=== PATIENT | female | born 1980 | race Caucasian/White ===

== ENCOUNTER 2016-11-17 19:42 | Emergency (ER) | payer OTHER ==
[2016-11-17 19:54] VITALS: BP 115/78; PULSE 61; TEMP 97.6
[2016-11-17 20:20] VITALS: BMI 34.7
--- NOTE | 2016-11-17 20:51 | PDOC ---
History of Present Illness - General Chief Complaint: Chest Pain Stated Complaint: CHEST PAIN/SOB Time Seen by Provider: 11/17/16 20:43 History Source: Patient Exam Limitations: No Limitations, Language Barrier - History of Present Illness Presenting Symptoms: Chest Pain Timing/Duration: reports: getting worse Severity/Quality: reports: moderate, pressure Location: reports: substernal Chest Pain Radiation: reports: no radiation Activities at Onset: reports: none. denies: exertion, emotional upset, rest, sleep, no specific activity, eating, working, sexual intercourse, other Prior Chest Pain/Cardiac Workup: reports: Angina Modifying Factors: worse with: antacids, breathing, coughing, defecating, eating , exercise, lying down, morphine, movement, nitroglycerin, oxygen, palpation, rest, other Nitro Today/Relief: No: no nitro taken today, 0.4 mg x 1, 0.4 mg x 2, 0.4 mg x 3 , 0.4 mg x 4, provided by EMS, provided by ED, provided at home, no relief, mild relief, complete relief Aspirin Received prior to arrival (Core Measure): No: no aspirin today, unknown , 81 mg x 1, 81 mg x 2, 81 mg x 3, 81 mg x 4, 325 mg x 1, provided at home, provided by EMS, provided by ED ASA Contraindications (Core Measure): No: Allergy, Other, Active Blding w/i 24 hrs., Plavix, Receiving Warfarin Beta Phani given by EMS (Core Measure): No Beta Phani taken at Home (Core Measure): No Beta Phani Contraindications (Core Measure): No: Not Prescribed, Allergy, Bradycardia (HR <60bpm), Advanced Heart Block, Pacemaker, Other Beta Phani indicated at this time? (Core Measure): No Associated Symptoms: No: Denies symptoms, Abdominal pain, Back Pain, Cough, Chest Pain/pressure, Diaphoresis, Dizziness, Edema, Fatigue, Fever/chills, Headache, Heartburn, Loss of Appetite, Nausea, Palpitations, Rash, Shortness of Breath, Swelling/lump in chest, Syncope, Vomiting, Weakness Past History - Past Medical History Allergies/Adverse Reactions: Allergies Allergy/AdvReac Type Severity Reaction Status Date / Time No Known Allergies Allergy Verified 11/17/16 19:49 Home Medications: Ambulatory Orders Aspirin [ASA -] 81 mg PO DAILY 11/17/16 - Immunization History Immunization Up to Date: No - Psycho/Social/Smoking Cessation Hx Suicidal Ideation: No Smoking History: Never smoked Number of Cigarettes Smoked Daily: 0 Information on smoking cessation initiated: No Hx Alcohol Use: No Drug/Substance Use Hx: No *Physical Exam - Vital Signs Last Vital Signs Temp Pulse Resp BP Pulse Ox 97.6 F 61 16 115/78 100 11/17/16 19:50 11/17/16 19:50 11/17/16 19:50 11/17/16 19:50 11/17/16 19:50 - Physical Exam General Appearance: Yes: Nourished, Appropriately Dressed. No: Apparent Distress, Disheveled, Mild Distress, Moderate Distress, Severe Distress, Alcohol on Breath, Intoxicated, Cachetic, Obese, Thin, Other Neck: positive: Trachea midline, Normal Thyroid, Supple Respiratory/Chest: positive: Lungs Clear, Normal Breath Sounds. negative: Chest Tender, Respiratory Distress, Accessory Muscle Use, Decreased Breath Sounds, Paradoxal Breathing, Crackles, Rales, Rhonchi, Stridor, Wheezing, Hyperresonant, Dullness, Plerual Rub Cardiovascular: positive: Regular Rhythm, Regular Rate, S1, S2. negative: Edema , JVD, Murmur, Bradycardia, Tachycardia, Diastolic Murmur, Systolic Murmur, Gallop/S3, Gallop/S4, Irregularly Irregular Gastrointestinal/Abdominal: positive: Normal Bowel Sounds, Flat, Soft Musculoskeletal: positive: Normal Inspection. 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 NML intact, Fully Oriented, Alert, Normal Mood/ Affect, Normal Response, Motor Strength /5 ED Treatment Course - LABORATORY CBC & Chemistry Diagram: 11/17/16 22:00 11/17/16 22:00 - ADDITIONAL ORDERS Additional order review: Laboratory Results 11/18/16 11/17/16 11/17/16 00:45 22:00 20:30 Sodium 139 Potassium 4.0 Chloride 107 Carbon Dioxide 24 Anion Gap 8 BUN 20 H Creatinine 0.6 Creat Clearance w eGFR > 60 Random Glucose 82 Calcium 8.7 Total Bilirubin 0.3 AST 30 ALT 32 Alkaline Phosphatase 86 Creatine Kinase 234 H D 309 H CK-MB (CK-2) 4.123 H Troponin I < 0.02 < 0.02 C-Reactive Protein 0.3 Total Protein 7.8 Albumin 4.1 Lipase 140 Urine HCG, Qual Negative 11/17/16 22:00 RBC 4.74 MCV 85.9 MCHC 32.8 RDW 14.1 MPV 8.3 Neutrophils % 51.4 Lymphocytes % 38.8 Monocytes % 7.2 Eosinophils % 1.9 Basophils % 0.7 - RADIOLOGY Radiology Studies Ordered: Category Date Time Status CHEST PA & LAT [RAD] Stat Radiology 11/17/16 21:58 Taken Progress Note - Progress Note Progress Note: Patient examined here in ER. Patient had labs drawn which showed elevated cardiac enzymes. Patient had x-ray done with no acute disease seen. Patient had EKG done NSR, NITW, NSTE. Medical Decision Making - Medical Decision Making 11/18/16 01:56 Patient wtih atypical chest pain with no cardiac distress at this time. 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 Patient to return to ER for any worsening symptoms. *DC/Admit/Observation/Transfer Diagnosis at time of Disposition: Atypical chest pain - Discharge Dispostion Disposition: HOME Condition at time of disposition: Stable Admit: No - Patient Instructions Printed Discharge Instructions: DI for Atypical Chest Pain, DI for Chest Pain
[2016-11-17 22:13] LABS: BASOPHIL 0.7 % (0-2.0); EOSINOPHIL 1.9 % (0-4.5); MCH 28.2 pg (25.7-33.7); MCHC 32.8 g/dl (32.0-36.0); MEAN CELL VOLUME 85.9 fl (80-96); MEAN PLT VOLUME 8.3 fl (7.5-11.1); NEUTROPHILS 51.4 % (42.8-82.8); PLATELET COUNT 243 K/MM3 (134-434); RDW 14.1 % (11.6-15.6); WHITE BLOOD COUNT 6.4 K/mm3 (4.0-10.0)
[2016-11-17 22:34] LABS: ALBUMIN 4.1 g/dl (3.4-5.0); ANION GAP 8 (8-16); BILIRUBIN,TOTAL 0.3 mg/dL (0.2-1.0); CALCIUM 8.7 mg/dL (8.5-10.1); CO2 24 mmol/L (21-32); CREATININE 0.6 mg/dL (0.55-1.02); GLUCOSE,RANDOM 82 mg/dL (74-106); SGOT/AST 30 U/L (15-37); SGPT/ALT 32 U/L (12-78); TOT PROT 7.8 g/dl (6.4-8.2)
[2016-11-17 22:37] LABS: ALK PHOS 86 U/L (45-117); TROPONIN I < 0.02 ng/ml (0.00-0.05)
[2016-11-17 22:46] LABS: C-REACTIVE PROTEIN 0.3 MG/DL (0.00-0.3)
[2016-11-18 01:21] LABS: TROPONIN I < 0.02 ng/ml (0.00-0.05)
--- NOTE | 2016-11-21 15:16 | EKG ---
Test Reason : Blood Pressure : / mmHG Vent. Rate : 066 BPM Atrial Rate : 066 BPM P-R Int : 142 ms QRS Dur : 086 ms QT Int : 432 ms P-R-T Axes : 029 032 018 degrees QTc Int : 452 ms NORMAL SINUS RHYTHM RSR' OR QR PATTERN IN V1 SUGGESTS RIGHT VENTRICULAR CONDUCTION DELAY BORDERLINE ECG NO PREVIOUS ECGS AVAILABLE Confirmed by MUNA LUDWIG MD ([id number]) on 11/21/2016 3:15:46 PM Referred By: Confirmed By:MUNA LUDWIG MD
== END 2016-11-18 02:09 | disposition home or self-care (01) ==
LOC: JER 19:42
DX: R07.89 Other chest pain (principal)
CPT/HCPCS: 36415; 71020-TC; 80053; 82550; 82553; 83690; 84484; 84703; 85025; 86140; 93005; 93010; 99282-25

== ENCOUNTER 2017-10-08 00:55 | Emergency (ER) | payer OTHER ==
--- NOTE | 2017-10-08 01:42 | PDOC ---
History of Present Illness - General History Source: Patient, Old Records Exam Limitations: No Limitations - History of Present Illness Initial Comments: 10/08/17 01:48 The patient is a 37 year old female, accompanied by , with no significant past medical history who presents to the emergency department with abdominal pain for 6 hours. The patient states that her pain began after eating and has not resolved. She notes that she has had similar symptoms in the past but has not seen a doctor for treatment. <Tashi Altamirano - Last Filed: 10/08/17 01:48> - General History Source: Patient <Dom Bermeo - Last Filed: 10/08/17 19:52> - General Chief Complaint: Pain Stated Complaint: RIGHT SIDE PAIN Time Seen by Provider: 10/08/17 01:39 Past History <Tashi Altamirano - Last Filed: 10/08/17 01:48> - Immunization History Immunization Up to Date: No - Suicide/Smoking/Psychosocial Hx Smoking History: Never smoked Have you smoked in the past 12 months: No Number of Cigarettes Smoked Daily: 0 Information on smoking cessation initiated: No Hx Alcohol Use: No Drug/Substance Use Hx: No <Dom Bermeo - Last Filed: 10/08/17 19:52> - Past Medical History Allergies/Adverse Reactions: Allergies Allergy/AdvReac Type Severity Reaction Status Date / Time No Known Allergies Allergy Verified 10/08/17 01:31 Home Medications: Ambulatory Orders Aspirin [ASA -] 81 mg PO DAILY 11/17/16 Acetaminophen W/ Codeine #3 [Tylenol # 3 -] 1 tab PO Q6H #20 tablet MDD 4 Ibuprofen 800 mg PO TID #30 tablet 10/08/17 Ondansetron [Zofran *Odt*] 4 mg SL TID #30 od.tablet 10/08/17 Oxycodone HCl/Acetaminophen [Percocet 5-325 mg Tablet] 1 - 2 tab PO Q6H #20 tablet MDD 4 10/08/17 Pantoprazole Sodium [Protonix] 40 mg PO DAILY #30 tablet. 10/08/17 Review of Systems - Review of Systems Able to Perform ROS?: Yes Comments:: 10/08/17 01:48 CONSTITUTIONAL: Absent: fever, no chills, no fatigue EYES: Absent: visual changes ENT: Absent: ear pain, no sore throat CARDIOVASCULAR: Absent: chest pain, no palpitations RESPIRATORY: Absent: cough, no SOB GI: (+) Abdominal pain Absent: No constipation, no diarrhea GENITOURINARY: Absent: dysuria, no frequency, no hematuria MUSCULOSKELETAL: Absent: back pain, no arthralgia, no myalgia SKIN: Absent: rash <Tashi Altamirano - Last Filed: 10/08/17 01:48> *Physical Exam - Vital Signs Last Vital Signs Temp Pulse Resp BP Pulse Ox 97.7 F 65 18 103/69 99 10/08/17 01:29 10/08/17 01:29 10/08/17 01:29 10/08/17 01:29 10/08/17 01:29 - Physical Exam Comments: 10/08/17 01:48 GENERAL: Well-appearing, well-nourished. No apparent distress. HEENT: Normocephalic, atraumatic. PERRL, EOM intact. CARDIOVASCULAR: Normal S1, S2. Regular rate and rhythm. PULMONARY: Clear to auscultation bilaterally. ABDOMEN: Soft, non-distended, RUQ tenderness on palpation EXTREMITIES: Normal ROM in all four extremities. No gross deformities. SKIN: Warm, dry. No rash NEUROLOGICAL: No focal neurological deficits. <Tashi Altamirano - Last Filed: 10/08/17 01:48> - Vital Signs Last Vital Signs Temp Pulse Resp BP Pulse Ox 97.7 F 65 18 103/69 99 10/08/17 01:29 10/08/17 01:29 10/08/17 01:29 10/08/17 01:29 10/08/17 01:29 <Dom Bermeo - Last Filed: 10/08/17 19:52> ED Treatment Course - LABORATORY CBC & Chemistry Diagram: 10/08/17 02:30 10/08/17 02:30 <Dom Bermeo - Last Filed: 10/08/17 19:52> Medical Decision Making - Medical Decision Making 10/08/17 19:51 Dr. Bermeo: The scribe's documentation has been prepared under my direction and personally reviewed by me in its entirery. I confirm that the note above accurately reflects all work, treatment, procedures, and medical decision making performed by me. <Dom Bermeo - Last Filed: 10/08/17 19:52> *DC/Admit/Observation/Transfer - Attestations Scribe Attestion: 10/08/17 01:48 Documentation prepared by Tashi Altamirano, acting as medical and health services manager for Dom Bermeo DO. <Tashi Altamirano - Last Filed: 10/08/17 01:48> - Discharge Dispostion Admit: No <Dom Bermeo - Last Filed: 10/08/17 19:52> Diagnosis at time of Disposition: Gall stones - Discharge Dispostion Disposition: HOME Condition at time of disposition: Stable - Prescriptions Prescriptions: Ibuprofen 800 mg PO TID #30 tablet Ondansetron [Zofran *Odt*] 4 mg SL TID #30 od.tablet Oxycodone HCl/Acetaminophen [Percocet 5-325 mg Tablet] 1 - 2 tab PO Q6H #20 tablet MDD 4 Pantoprazole Sodium [Protonix] 40 mg PO DAILY #30 tablet.dr - Referrals Referrals: Raheem Esteves MD [Staff Physician] - Kerrie Milner MD [Staff Physician] - STAFF,NOT ON [Primary Care Provider] - Peter Costa MD [Staff Physician] - - Patient Instructions Printed Discharge Instructions: DI for Gallstones - Post Discharge Activity
[2017-10-08 01:57] VITALS: BP 103/69; PULSE 65; TEMP 97.7; BMI 34.3
[2017-10-08] MEDS ORDERED: KETOROLAC TROMETHAMINE 30 MG/1 ML VIAL IVPUSH ONE (02:16)
[2017-10-08] MEDS ORDERED: ONDANSETRON 4 MG/2 ML VIAL IVPUSH STA (02:16)
[2017-10-08] MEDS ORDERED: FAMOTIDINE 20 MG/50 ML IVPB 20 MG in PREMIX 50 IVPB ONE (02:16)
[2017-10-08] MEDS ORDERED: ONDANSETRON 4 MG/2 ML VIAL ONE (02:28)
[2017-10-08] MEDS ORDERED: FAMOTIDINE 20 MG/50 ML IVPB 20 MG/50 ML MG IVPB ONE (02:28)
[2017-10-08] MEDS ORDERED: KETOROLAC TROMETHAMINE 30 MG/1 ML VIAL ONE (02:28)
[2017-10-08 02:49] LABS: BASOPHIL 0.6 % (0-2.0); EOSINOPHIL 3.1 % (0-4.5); MCH 29.4 pg (25.7-33.7); MEAN CELL VOLUME 86.4 fl (80-96); MEAN PLT VOLUME 8.4 fl (7.5-11.1); NEUTROPHILS 52.9 % (42.8-82.8); PLATELET COUNT 212 K/MM3 (134-434); RDW 13.9 % (11.6-15.6); WHITE BLOOD COUNT 6.3 K/mm3 (4.0-10.0)
[2017-10-08 03:12] LABS: ALBUMIN 3.5 g/dl (3.4-5.0); ANION GAP 5 (8-16); BILIRUBIN,TOTAL 0.2 mg/dL (0.2-1.0); CALCIUM 7.8 mg/dL (8.5-10.1); CO2 28 mmol/L (21-32); CREATININE 0.5 mg/dL (0.55-1.02); GLUCOSE,RANDOM 107 mg/dL (74-106); SGOT/AST 15 U/L (15-37); SGPT/ALT 22 U/L (12-78); TOT PROT 6.6 g/dl (6.4-8.2)
[2017-10-08 03:13] LABS: ALK PHOS 107 U/L (45-117)
[2017-10-08] MEDS ORDERED: morphine CARPU-JECT 2 MG/1 ML DISP.SYRIN IVPUSH ONE (03:37)
[2017-10-08] MEDS ORDERED: morphine SULFATE 4 MG/ML VIAL ONE (03:39)
== END 2017-10-08 04:02 | disposition home or self-care (01) ==
LOC: JER 00:55
PROC: 3E033GC Introduction of Other Therapeutic Substance into Peripheral Vein, Percutaneous Approach (ICD-10-PCS; principal; 2017-10-08)
PROC: 3E033GC Introduction of Other Therapeutic Substance into Peripheral Vein, Percutaneous Approach (ICD-10-PCS; 2017-10-08)
PROC: 3E033NZ Introduction of Analgesics, Hypnotics, Sedatives into Peripheral Vein, Percutaneous Approach (ICD-10-PCS; 2017-10-08)
PROC: 3E0333Z Introduction of Anti-inflammatory into Peripheral Vein, Percutaneous Approach (ICD-10-PCS; 2017-10-08)
DX: K80.20 Calculus of gallbladder without cholecystitis without obstruction (principal)
CPT/HCPCS: 36415; 76705-TC; 80053; 83690; 83735; 84703; 85025; 99281-25

== ENCOUNTER 2019-01-15 18:18 | Emergency (ER) | payer OTHER ==
[2019-01-15] MEDS ORDERED: ACETAMINOPHEN 500 MG TABLET (FP) PO ONE (18:27)
--- NOTE | 2019-01-15 18:27 | PDOC ---
Rapid Medical Evaluation Time Seen by Provider: 01/15/19 18:25 Medical Evaluation: Allergies Allergy/AdvReac Type Severity Reaction Status Date / Time No Known Allergies Allergy Verified 10/08/17 01:31 01/15/19 18:25 I have performed a brief in-person evaluation of this patient. The patient presents with a chief complaint of: cold symptoms x7 days Pertinent physical exam findings:NAD I have ordered the following:tylenol The patient will proceed to the ED for further evaluation. 01/15/19 18:26 Discharge Disposition - Diagnosis Upper respiratory infection - Referrals - Patient Instructions - Post Discharge Activity
[2019-01-15 18:30] VITALS: BP 109/42; PULSE 66; TEMP 97.7; BMI 34.3
[2019-01-15] MEDS ORDERED: ACETAMINOPHEN 500 MG TABLET (FP) ONE (18:43)
--- NOTE | 2019-01-15 19:05 | PDOC ---
History of Present Illness - General Chief Complaint: Cold Symptoms Stated Complaint: SOB Time Seen by Provider: 01/15/19 18:25 History Source: Patient Exam Limitations: No Limitations Past History - Travel Traveled outside of the country in the last 30 days: No Close contact w/someone who was outside of country & ill: No - Past Medical History Allergies/Adverse Reactions: Allergies Allergy/AdvReac Type Severity Reaction Status Date / Time No Known Allergies Allergy Verified 01/15/19 18:26 Home Medications: Ambulatory Orders Aspirin [ASA -] 81 mg PO DAILY 11/17/16 Acetaminophen W/ Codeine #3 [Tylenol # 3 -] 1 tab PO Q6H #20 tablet MDD 4 Ibuprofen 800 mg PO TID #30 tablet 10/08/17 Ondansetron [Zofran *Odt*] 4 mg SL TID #30 od.tablet 10/08/17 Oxycodone HCl/Acetaminophen [Percocet 5-325 mg Tablet] 1 - 2 tab PO Q6H #20 tablet MDD 4 10/08/17 Pantoprazole Sodium [Protonix] 40 mg PO DAILY #30 tablet.dr 10/08/17 Albuterol Sulfate Inhaler - [Ventolin HFA Inhaler -] 1 - 2 inh PO Q4H #1 inhaler 01/15/19 Guaifenesin Dm [Robitussin Dm -] 10 ml PO Q8H #200 ml 01/15/19 Ibuprofen 600 mg PO Q6H #30 tablet 01/15/19 Methylprednisolone [Medrol -] 4 mg PO ASDIR #21 tablet 01/15/19 COPD: No - Immunization History Immunization Up to Date: No - Suicide/Smoking/Psychosocial Hx Smoking History: Never smoked Have you smoked in the past 12 months: No Number of Cigarettes Smoked Daily: 0 Hx Alcohol Use: No Drug/Substance Use Hx: No Review of Systems - Review of Systems Able to Perform ROS?: Yes Is the patient limited Andorran proficient: No *Physical Exam - Vital Signs Last Vital Signs Temp Pulse Resp BP Pulse Ox 97.7 F 66 17 109/42 L 98 01/15/19 18:26 01/15/19 18:26 01/15/19 18:26 01/15/19 18:26 01/15/19 18:26 Moderate Sedation - Procedure Monitoring Vital Signs: Procedure Monitoring Vital Signs Temperature 97.7 F 01/15/19 18:26 Pulse Rate 66 01/15/19 18:26 Respiratory Rate 17 01/15/19 18:26 Blood Pressure 109/42 L 01/15/19 18:26 O2 Sat by Pulse Oximetry (%) 98 01/15/19 18:26 ED Treatment Course - Medications Given in the ED: ED Medications Discontinued Medications Generic Name Dose Route Start Last Admin Trade Name Bluq PRN Reason Stop Dose Admin Acetaminophen 1,000 mg 01/15/19 18:27 01/15/19 18:44 Tylenol - PO 01/15/19 18:28 1,000 mg ONCE ONE Administration *DC/Admit/Observation/Transfer Diagnosis at time of Disposition: Upper respiratory infection Qualifiers: URI type: unspecified viral URI Qualified Code(s): J06.9 - Acute upper respiratory infection, unspecified - Discharge Dispostion Disposition: HOME Condition at time of disposition: Stable Decision to Admit order: No - Referrals Referrals: Alix Sanchez [Primary Care Provider] - - Patient Instructions Printed Discharge Instructions: DI for Viral Upper Respiratory Infection -- Adult Additional Instructions: You have an upper respiratory infection, or the common cold. Take all medications as prescribed Drink plenty of fluids. Cough drops and warm tea may help your symptoms as well. Please follow up with her primary care doctor this week. Return to the emergency department if you have difficulty breathing, shortness of breath, worsening pain, nausea, vomiting or if you have any changes in your symptoms. Usted tiene bran infeccin respiratoria superior, o el resfriado comn. Lila todos los medicamentos segn lo prescrito. Beber mucho lquido. Las gotas para la tos y el t caliente tambin pueden ayudar con daly sntomas. Por favor austyn un seguimiento con hamilton mdico de atencin primaria esta semana. Regrese al departamento de emergencias si tiene dificultad para respirar, dificultad para respirar, empeoramiento del dolor, nuseas, vmitos o si tiene algn cambio en daly sntomas. - Post Discharge Activity
[2019-01-15] MEDS ORDERED: ALBUTEROL SO4 2.5/IPRATROPIUM 0.5 INH SOL 3 ML VIAL.NEB. NEB ONE ×2 (19:15→19:17)
[2019-01-15] MEDS ORDERED: IBUPROFEN 400 MG TABLET (FP) PO ONE ×2 (19:15→19:17)
[2019-01-15] MEDS ORDERED: guaiFENesin/D-METHORPHAN HB 10 ML UNIT-DOSE CUPS PO ONE (20:00)
[2019-01-15] MEDS ORDERED: guaiFENesin/D-METHORPHAN HB 10 ML UNIT-DOSE CUPS ONE (20:02)
== END 2019-01-15 20:09 | disposition home or self-care (01) ==
LOC: JERFT 18:18
PROC: 3E0F7GC Introduction of Other Therapeutic Substance into Respiratory Tract, Via Natural or Artificial Opening (ICD-10-PCS; principal; 2019-01-15)
DX: J06.9 Acute upper respiratory infection, unspecified (principal); B97.89 Other viral agents as the cause of diseases classified elsewhere
CPT/HCPCS: 71046-TC-FY; 94640; 99281-25

== ENCOUNTER 2019-04-10 18:39 | Emergency (ER) | payer OTHER | END 2019-04-10 19:32 | disposition home or self-care (01) | LOC: JERFT 18:39 ==

== ENCOUNTER 2019-11-10 17:12 | Emergency (ER) | payer OTHER ==
[2019-11-10 17:23] VITALS: BMI 41.1
--- NOTE | 2019-11-10 18:00 | PDOC ---
History of Present Illness - General Chief Complaint: Shortness of Breath Stated Complaint: S.O.B Time Seen by Provider: 11/10/19 17:57 History Source: Patient Exam Limitations: Language Barrier - History of Present Illness Initial Comments: 11/10/19 20:06 39y F with no significant PMH presenting to ED with complaints of chest pain, sob, cough productive of yellow sputum, sore throat, earache and congestion x2 weeks but pain feels worse today. She has been taking Naproxen. Denies fever, abdominal pain, n/v/d, back pain, urinary symptoms. No history of NV in the family. PMD: Medeiros PMH: none PSH: Meds: none Allergies: nkda Social: denies Past History - Past Medical History Allergies/Adverse Reactions: Allergies Allergy/AdvReac Type Severity Reaction Status Date / Time No Known Allergies Allergy Verified 11/10/19 17:23 Home Medications: Ambulatory Orders Diclofenac Sodium [Voltaren] 100 gm TP TID #1 tube 04/10/19 Ibuprofen [Motrin -] 400 mg PO TID 04/10/19 COPD: No - Immunization History Immunization Up to Date: No - Psycho Social/Smoking Cessation Hx Smoking History: Never smoked Have you smoked in the past 12 months: No Number of Cigarettes Smoked Daily: 0 Information on smoking cessation initiated: No Hx Alcohol Use: No Drug/Substance Use Hx: No Review of Systems - Review of Systems Constitutional: No: Chills, Fever, Weakness HEENTM: Yes: Symptoms Reported Respiratory: Yes: Symptoms reported Cardiac (ROS): Yes: Symptoms Reported ABD/GI: No: Symptoms Reported : No: Symptoms Reported Musculoskeletal: Yes: Symptoms Reported Integumentary: No: Symptoms Reported Neurological: No: Symptoms reported *Physical Exam - Vital Signs Last Vital Signs Temp Pulse Resp BP Pulse Ox 97.4 F L 74 19 108/69 97 11/10/19 17:16 11/10/19 17:16 11/10/19 17:16 11/10/19 17:16 11/10/19 17:16 - Physical Exam General Appearance: Yes: Nourished, Appropriately Dressed. No: Apparent Distress HEENT: positive: EOMI, AMBROSIO, Normal ENT Inspection, TMs Normal, Pharynx Normal. negative: TM Erythema Neck: positive: Trachea midline, Supple. negative: Lymphadenopathy (R), Lymphadenopathy (L) Respiratory/Chest: positive: Lungs Clear, Normal Breath Sounds. negative: Chest Tender, Crackles, Rales, Rhonchi, Stridor, Wheezing, Plerual Rub Cardiovascular: positive: Regular Rhythm, Regular Rate, S1, S2. negative: Edema , JVD, Murmur Gastrointestinal/Abdominal: positive: Normal Bowel Sounds, Soft. negative: Tender Extremity: positive: Normal Capillary Refill. 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 vitals are wnl. afebrile likely pleurisy or viral illness. PERC negative. Low suspicion for ACS, dissection. ddx also includes pericarditis , myocarditis will obtain basic labs, trop, cxr tylenol no white count. cxr is unremarkable ekg: nsr at 69bpm with normal intervals. no genevieve or depressions. R wave progression. pending chem and trop. likely dc home will give toradol for pain. Discharge - Discharge Information Problems reviewed: Yes Clinical Impression/Diagnosis: Atypical chest pain Condition: Good Disposition: HOME - Admission No - Follow up/Referral Referrals: Karma Medeiros [Primary Care Provider] - To Gibson MD [Staff Physician] - - Patient Discharge Instructions Patient Printed Discharge Instructions: DI for Atypical Chest Pain Additional Instructions: Te vieron en la luís de emergencias por dolor en el pecho. El corazn y los pulmones son normales. [place] probablemente se deba a los sntomas de tos y resfriado que tiene. [place]ine tomando daly medicamentos segn las indicaciones. Puede usar un aerosol nasal para la congestin. Regrese a la luís de emergencias por dificultad para respirar, fiebre o si se desarrolla algn sntoma nuevo o preocupante. Es posible que tenga un hgado graso, le recomiendo beto a un mdico gastrointestinal. La informacin se proporciona a continuacin. Print Language: PRYDEINIG - Post Discharge Activity
[2019-11-10] MEDS ORDERED: ACETAMINOPHEN 500 MG TABLET (FP) PO ONE (18:14)
[2019-11-10] MEDS ORDERED: ACETAMINOPHEN 325 MG TABLET (FP) ONE (18:52)
[2019-11-10 18:58] LABS: BASO % 0.6 % (0-2.0); EOS % 2.1 % (0-4.5); HEMATOCRIT 37.1 % (32.4-45.2); HEMOGLOBIN 12.4 GM/dL (10.7-15.3); LYMPH % 35.5 % (8-40); MCHC 33.4 g/dl (32.0-36.0); MEAN CELL VOLUME 86.8 fl (80-96); MEAN PLT VOLUME 9.2 fl (7.5-11.1); MONO % 5.5 % (3.8-10.2); NEUT % 56.3 % (42.8-82.8); PLATELET COUNT 257 K/MM3 (134-434); RBC 4.27 M/mm3 (3.60-5.2); RDW 13.8 % (11.6-15.6); WHITE BLOOD COUNT 6.5 K/mm3 (4.0-10.0)
[2019-11-10 19:37] VITALS: BP 122/74; PULSE 65; TEMP 98.1
--- NOTE | 2019-11-10 19:40 | PDOC ---
Documentation entered by Neelam Patel SCRIBE, acting as scribe for David Chacon MD. David Chacon MD: This documentation has been prepared by the Jorge castillo Adrianna, SCRIBE, under my direction and personally reviewed by me in its entirety. I confirm that the documentation accurately reflects all work, treatment, procedures, and medical decision making performed by me. Attending Attestation - Resident Resident Name: Guillermina Bernard - HPI HPI: 11/10/19 19:37 39-year-old female with no significant past medical history presents with sore throat, productive cough, pleuritic left-sided anterior chest wall pain that is exacerbated by coughing for the past 2 weeks. Patient denies fever/chills/ nausea/vomiting. - Physicial Exam PE: 11/10/19 19:37 Patient is awake and alert, obese, in no distress Vital signs are noted Normocephalic and atraumatic PERRLA, EOMI, no scleral icterus Oropharynx is clear, uvula is midline and is nonedematous CTA Left anterior chest wall tenderness reproducible to palpation RRR Abdomen soft, nontender, nondistended - Medical Decision Making 11/10/19 19:39 39-year-old female presents to the ER with 2 weeks of sore throat and productive cough with pleuritic chest wall pain. Patient's vital signs are normal, she is nontoxic-appearing. Will obtain chest x-ray to rule out pneumonia. Likely discharge with NSAIDs and outpatient follow-up. I do not suspect a PE (patient is PERC rule negative.). EKG is within normal limit. ACS is highly unlikely.
[2019-11-10 20:20] LABS: ALBUMIN 3.8 g/dl (3.4-5.0); BILIRUBIN,TOTAL 0.2 mg/dL (0.2-1); BLOOD UREA NITROGEN 23.7 mg/dL (7-18); CALCIUM 8.5 mg/dL (8.5-10.1); CREATININE 0.6 mg/dL (0.55-1.3); POTASSIUM 4.4 mmol/L (3.5-5.1); TOT PROT 7.3 g/dl (6.4-8.2)
[2019-11-10] MEDS ORDERED: KETOROLAC TROMETHAMINE 15 MG/ML VIAL IVPUSH ONE (21:16)
[2019-11-10] MEDS ORDERED: KETOROLAC TROMETHAMINE 15 MG/ML VIAL ONE (21:30)
--- NOTE | 2019-11-11 12:53 | EKG ---
Test Reason : Blood Pressure : / mmHG Vent. Rate : 069 BPM Atrial Rate : 069 BPM P-R Int : 148 ms QRS Dur : 082 ms QT Int : 422 ms P-R-T Axes : 041 037 015 degrees QTc Int : 452 ms NORMAL SINUS RHYTHM POSSIBLE LEFT ATRIAL ENLARGEMENT BORDERLINE ECG WHEN COMPARED WITH ECG OF 17-NOV-2016 19:51, NO SIGNIFICANT CHANGE WAS FOUND Confirmed by MUNA LUDWIG MD ([id number]) on 11/11/2019 12:53:23 PM Referred By: Confirmed By:MUNA LUDWIG MD
== END 2019-11-10 22:15 | disposition home or self-care (01) ==
LOC: JER 17:12
PROC: 3E033GC Introduction of Other Therapeutic Substance into Peripheral Vein, Percutaneous Approach (ICD-10-PCS; principal; 2019-11-10)
DX: R07.9 Chest pain, unspecified (principal)
CPT/HCPCS: 36415; 71046-TC-FY; 80053; 84484; 85025; 93005; 93010; 99284-25

== ENCOUNTER → 2021-05-02 | Day surgery (SDC) | payer OTHER | END | disposition home or self-care (01) | LOC: FMAMMOTONE 10:08 | PROVIDERS: ATTEND Surgery | PROC: 0HBT3ZX Excision of Right Breast, Percutaneous Approach, Diagnostic (ICD-10-PCS; principal; 2021-05-02) | DX: R92.8 Other abnormal and inconclusive findings on diagnostic imaging of breast (principal); Z53.8 Procedure and treatment not carried out for other reasons | CPT/HCPCS: 19081 ==

== ENCOUNTER 2024-08-24 04:00 | Inpatient (IN) | payer OTHER ==
[2024-08-23 09:46] VITALS: BMI 27.2
[2024-08-24] MEDS ORDERED: LIDOCAINE 1%/EPI 1:100000 (20 ML MULTI DOSE VIAL) ONE (07:05)
[2024-08-24] MEDS ORDERED: BUPIVACAINE LIPOSOME/PF (EXPAREL) 266 MG/20 ML VIAL ONE (07:05)
[2024-08-24] MEDS ORDERED: GENTAMICIN SO4 80 MG/2 ML VIAL ONE (07:05)
[2024-08-24] MEDS ORDERED: BUPIVACAINE HCL/PF 0.5% (5MG/ML) 10 ML VIAL ONE (07:05)
[2024-08-24] MEDS ORDERED: VANCOMYCIN 1,000 MG VIAL (RESTRICTED TO ID ONLY) ONE ×2 (07:05→08:21)
[2024-08-24] MEDS ORDERED: THROMBIN (BOVINE) 20,000 UNIT VIAL TP ONE (07:05)
[2024-08-24] MEDS ORDERED: ceFAZolin SODIUM 1 GM VIAL ONE (07:28)
[2024-08-24] MEDS ORDERED: ONDANSETRON 4 MG/2 ML VIAL ONE (07:28)
[2024-08-24] MEDS ORDERED: LIDOCAINE HCL/PF 2% SDV 5ML VIAL ONE (07:28)
[2024-08-24] MEDS ORDERED: TRANEXAMIC ACID 1000 MG/10 ML VIAL ONE ×2 (07:28→10:56)
[2024-08-24] MEDS ORDERED: DEXAMETHASONE SOD PHOSPHATE 4 MG/1 ML VIAL ONE (07:28)
[2024-08-24] MEDS ORDERED: PHENYLEPHRINE HCL 10 MG/1 ML SINGLE DOSE VIAL ONE (07:30)
[2024-08-24] MEDS: ceFAZolin SODIUM 1 GM VIAL IVPB ONE ×2 (08:06→09:00)
[2024-08-24] MEDS: VANCOMYCIN 1 GM in D5W (PRE-DOCKED) 1,000 MG/250 ML (RESTRICTED TO ID ONLY IVPB ONE ×4 (08:06→10:35)
[2024-08-24] MEDS: LIDOCAINE 1%/EPI 1:100000 (20 ML MULTI DOSE VIAL) IJ ONE ×2 (08:07→08:58)
[2024-08-24] MEDS ORDERED: ACETAMINOPHEN INJECTION 100 ML ONE (08:21)
[2024-08-24] MEDS ORDERED: MIDAZOLAM HCL 2 MG/2 ML SINGLE DOSE VIAL ONE (08:26)
[2024-08-24] MEDS ORDERED: PROPOFOL 20 ML ONE (08:38)
[2024-08-24] MEDS ORDERED: HYDROmorphone HCl 2 MG/ML VIAL ONE (09:02)
[2024-08-24] MEDS ORDERED: KETAMINE HCL 200 MG/20 ML VIAL ONE (09:09)
[2024-08-24] MEDS ORDERED: GLYCOPYRROLATE 0.2 MG/1 ML VIAL ONE (09:09)
[2024-08-24] MEDS: GENTAMICIN SO4 80 MG/2 ML VIAL IVPB ONE (09:33)
[2024-08-24] MEDS: HYDROGEN PEROXIDE 473 ML PO ONE (09:33)
[2024-08-24] MEDS: THROMBIN (BOVINE) 5,000 UNIT VIAL TP ONE (09:33)
[2024-08-24] MEDS: BUPIVACAINE LIPOSOME/PF (EXPAREL) 266 MG/20 ML VIAL NR ONE ×2 (10:27→10:43)
[2024-08-24] MEDS: BUPIVACAINE HCL/PF 0.5% (5MG/ML) 10 ML VIAL IJ ONE ×2 (10:28→10:43)
[2024-08-24] MEDS ORDERED: SUGAMMADEX SODIUM 200 MG/2 ML VIAL ONE (10:46)
[2024-08-24] MEDS ORDERED: VASopressin 20 UNITS/ML VIAL IV ONE (10:59)
[2024-08-24] MEDS ORDERED: morphine SULFATE 4 MG/ML VIAL IVPUSH PRN (11:40)
[2024-08-24] MEDS ORDERED: diphenhydrAMINE HCL 25 MG CAPSULE (FP) PO PRN (11:40)
[2024-08-24] MEDS ORDERED: ONDANSETRON 4 MG/2 ML VIAL IVPUSH PRN (11:40)
[2024-08-24] MEDS: LACTATED RINGERS SOLUTION 1,000 ML/1,000 ML INFUS.BAG IV SCH (16:00)
[2024-08-24] MEDS: DOCUSATE SODIUM 100 MG CAPSULE (FP) PO SCH (16:00)
[2024-08-24] MEDS: CEFAZOLIN 1 GM in DEXTROSE 5%-WATER - 50 ML IVPB SCH (17:56)
[2024-08-24] MEDS: HEPARIN NA (PORCINE) 5,000 UNITS/ML 1ML VIAL SQ SCH (17:56)
[2024-08-24] MEDS: NAPROXEN 500 MG TABLET PO SCH (21:32)
[2024-08-25] MEDS: oxyCODONE HCL 5 MG TABLET PO PRN ×2 (01:07→08:11)
[2024-08-25 09:04] LABS: HEMOGLOBIN 7.7 GM/dL (10.7-15.3); MCH 25.5 pg (25.7-33.7); MCHC 32.1 g/dl (32.0-36.0); MEAN CELL VOLUME 79.3 fl (80-96); MEAN PLT VOLUME 8.7 fl (7.5-11.1); PLATELET COUNT 153 10^3/uL (134-434); RBC 3.02 M/mm3 (3.60-5.2); WHITE BLOOD COUNT 5.8 K/mm3 (4.0-10.0)
[2024-08-25] MEDS: GABAPENTIN 300 MG CAPSULE PO SCH (09:06)
[2024-08-25] MEDS: FOLIC ACID 1 MG TABLET (FP) PO SCH (09:06)
[2024-08-25 09:14] LABS: POTASSIUM 3.8 mmol/L (3.5-5.1)
[2024-08-25 09:41] LABS: BLOOD UREA NITROGEN 11.5 mg/dL (7-18); CREATININE 0.4 mg/dL (0.55-1.3)
[2024-08-25] MEDS: HYDROmorphone *PCA* 10MG/50ML DISP.SYRIN PCA SCH ×2 (14:28→17:30)
[2024-08-25] MEDS: SENNOSIDES 8.8 MG/5 ML SYRUP PO SCH (21:17)
[2024-08-26 08:50] LABS: HEMATOCRIT 23.3 % (32.4-45.2); HEMOGLOBIN 7.6 GM/dL (10.7-15.3); MCH 25.9 pg (25.7-33.7); MCHC 32.6 g/dl (32.0-36.0); MEAN CELL VOLUME 79.4 fl (80-96); MEAN PLT VOLUME 8.4 fl (7.5-11.1); PLATELET COUNT 137 10^3/uL (134-434); RBC 2.94 M/mm3 (3.60-5.2); RDW 15.6 % (11.6-15.6)
[2024-08-26] MEDS: ACETAMINOPHEN 325 MG TABLET (FP) PO PRN (09:22)
[2024-08-26] MEDS: LACTATED RINGERS SOLUTION 1,000 ML/1,000 ML INFUS.BAG IV SCH (09:24)
[2024-08-26] MEDS: ACETAMINOPHEN 325 MG TABLET (FP) PO SCH (12:35)
[2024-08-26] MEDS: SENNOSIDES 8.8 MG/5 ML SYRUP PO SCH (12:37)
[2024-08-26] MEDS: ENOXAPARIN NA (PORCINE) 40 MG/0.4 ML DISP.SYRIN SQ SCH (16:02)
[2024-08-26] MEDS: CEFAZOLIN 1 GM in DEXTROSE 5%-WATER - 50 ML IVPB SCH (18:06)
[2024-08-26 23:36] LABS: CALCIUM 8.3 mg/dL (8.5-10.1); CREATININE 0.5 mg/dL (0.55-1.3); MAGNESIUM 1.8 mg/dL (1.8-2.4); POTASSIUM 4.1 mmol/L (3.5-5.1)
[2024-08-27 09:01] LABS: HEMATOCRIT 25.6 % (32.4-45.2); HEMOGLOBIN 8.2 GM/dL (10.7-15.3); MCH 25.3 pg (25.7-33.7); MCHC 31.8 g/dl (32.0-36.0); MEAN CELL VOLUME 79.3 fl (80-96); MEAN PLT VOLUME 8.5 fl (7.5-11.1); PLATELET COUNT 173 10^3/uL (134-434); RBC 3.23 M/mm3 (3.60-5.2); RDW 15.4 % (11.6-15.6); WHITE BLOOD COUNT 4.7 K/mm3 (4.0-10.0)
[2024-08-27] MEDS: POLYETHYLENE GLYCOL (HEALTHYLAX) 3350 17 GM PACKET PO SCH (09:04)
[2024-08-27] MEDS: BISACODYL 10 MG SUPP.RECT PR ONE (09:04)
[2024-08-27 09:12] LABS: POTASSIUM 3.9 mmol/L (3.5-5.1)
[2024-08-27 09:21] LABS: CALCIUM 8.5 mg/dL (8.5-10.1)
[2024-08-27 09:22] LABS: BLOOD UREA NITROGEN 6.8 mg/dL (7-18)
[2024-08-27 09:25] LABS: CREATININE 0.4 mg/dL (0.55-1.3)
[2024-08-27] MEDS: ACETAMINOPHEN 500 MG TABLET (FP) PO SCH (12:38)
[2024-08-27] MEDS: DOCUSATE NA 100 MG/10 ML UNIT-DOSE CUPS PO PRN (16:56)
[2024-08-27] MEDS: LACTATED RINGERS SOLUTION 1,000 ML/1,000 ML INFUS.BAG IV SCH (17:39)
[2024-08-28 08:03] LABS: BASO % 0.5 % (0-2.0); EOS % 2.9 % (0-4.5); HEMATOCRIT 24.9 % (32.4-45.2); HEMOGLOBIN 8.1 GM/dL (10.7-15.3); LYMPH % 30.7 % (8-40); MCH 25.6 pg (25.7-33.7); MCHC 32.3 g/dl (32.0-36.0); MEAN CELL VOLUME 79.2 fl (80-96); MEAN PLT VOLUME 8.5 fl (7.5-11.1); MONO % 6.2 % (3.8-10.2); NEUT % 59.7 % (42.8-82.8); PLATELET COUNT 164 10^3/uL (134-434); RBC 3.15 M/mm3 (3.60-5.2); RDW 15.6 % (11.6-15.6)
[2024-08-28] MEDS: MELATONIN 5 MG TABLETS PO ONE (08:06)
[2024-08-28 08:13] LABS: POTASSIUM 3.9 mmol/L (3.5-5.1)
[2024-08-28 08:26] LABS: CALCIUM 8.7 mg/dL (8.5-10.1)
[2024-08-28 08:27] LABS: BLOOD UREA NITROGEN 7.8 mg/dL (7-18)
[2024-08-28 08:31] LABS: CREATININE 0.4 mg/dL (0.55-1.3)
[2024-08-28] MEDS ORDERED: oxyCODONE HCL 5 MG TABLET PO PRN (12:04)
[2024-08-28] MEDS ORDERED: morphine SULFATE 4 MG/ML VIAL IVPUSH PRN (12:05)
[2024-08-29 08:24] LABS: HEMATOCRIT 23.5 % (32.4-45.2); HEMOGLOBIN 7.8 GM/dL (10.7-15.3); MCHC 33.3 g/dl (32.0-36.0); MEAN CELL VOLUME 77.9 fl (80-96); MEAN PLT VOLUME 8.2 fl (7.5-11.1); PLATELET COUNT 198 10^3/uL (134-434); RBC 3.02 M/mm3 (3.60-5.2); RDW 15.6 % (11.6-15.6); WHITE BLOOD COUNT 3.6 K/mm3 (4.0-10.0)
[2024-08-29 08:36] LABS: POTASSIUM 3.9 mmol/L (3.5-5.1)
[2024-08-29 08:41] LABS: CALCIUM 8.4 mg/dL (8.5-10.1)
[2024-08-29 08:42] LABS: BLOOD UREA NITROGEN 10.5 mg/dL (7-18)
[2024-08-29 08:45] LABS: CREATININE 0.4 mg/dL (0.55-1.3)
[2024-08-29] MEDS ORDERED: morphine SULFATE 4 MG/ML VIAL IVPUSH PRN (18:03)
[2024-08-29] MEDS: ACETAMINOPHEN 500 MG TABLET (FP) PO SCH (18:35)
[2024-08-29] MEDS: CEFAZOLIN 1 GM in DEXTROSE 5%-WATER - 50 ML IVPB SCH (18:36)
[2024-08-29] MEDS: POLYETHYLENE GLYCOL (HEALTHYLAX) 3350 17 GM PACKET PO SCH (21:55)
[2024-08-29] MEDS: SENNOSIDES 8.8 MG/5 ML SYRUP PO SCH (21:55)
[2024-08-30] MEDS ORDERED: ACETAMINOPHEN 500 MG TABLET (FP) PO SCH
[2024-08-30] MEDS ORDERED: CEFAZOLIN 1 GM in DEXTROSE 5%-WATER - 50 ML IVPB SCH (02:00)
[2024-08-30] MEDS: GABAPENTIN 300 MG CAPSULE PO SCH (09:28)
[2024-08-30] MEDS: oxyCODONE HCL 5 MG TABLET PO PRN (10:18)
[2024-08-31 09:19] LABS: BASO % 0.3 % (0-2.0); EOS % 3.1 % (0-4.5); HEMATOCRIT 26.4 % (32.4-45.2); HEMOGLOBIN 8.8 GM/dL (10.7-15.3); LYMPH % 26.2 % (8-40); MCH 25.9 pg (25.7-33.7); MCHC 33.2 g/dl (32.0-36.0); MONO % 7.7 % (3.8-10.2); NEUT % 62.7 % (42.8-82.8); PLATELET COUNT 271 10^3/uL (134-434); RBC 3.39 M/mm3 (3.60-5.2); WHITE BLOOD COUNT 4.8 K/mm3 (4.0-10.0)
[2024-08-31 09:33] LABS: CALCIUM 9.2 mg/dL (8.5-10.1)
[2024-08-31 09:34] LABS: ALBUMIN 3.4 g/dl (3.4-5.0)
[2024-08-31 09:37] LABS: CREATININE 0.5 mg/dL (0.55-1.3)
[2024-08-31 09:38] LABS: BILIRUBIN,TOTAL 0.3 mg/dL (0.2-1)
[2024-08-31] MEDS: DOCUSATE NA 100 MG/10 ML UNIT-DOSE CUPS PO PRN (11:05)
[2024-08-31] MEDS: IRON SUCROSE INJECTION 200 MG in SODIUM CHLORIDE 100 ML IVPB ONE (14:36)
[2024-09-01 09:48] LABS: BASO % 0.4 % (0-2.0); EOS % 3.5 % (0-4.5); HEMATOCRIT 26.5 % (32.4-45.2); HEMOGLOBIN 8.8 GM/dL (10.7-15.3); LYMPH % 22.3 % (8-40); MCH 25.9 pg (25.7-33.7); MCHC 33.1 g/dl (32.0-36.0); MEAN CELL VOLUME 78.1 fl (80-96); MEAN PLT VOLUME 8.2 fl (7.5-11.1); MONO % 7.1 % (3.8-10.2); NEUT % 66.7 % (42.8-82.8); PLATELET COUNT 277 10^3/uL (134-434); RBC 3.39 M/mm3 (3.60-5.2); RDW 16.2 % (11.6-15.6); WHITE BLOOD COUNT 4.3 K/mm3 (4.0-10.0)
[2024-09-01] MEDS ORDERED: oxyCODONE HCL 5 MG TABLET PO PRN (10:12)
[2024-09-01 10:16] LABS: POTASSIUM 3.5 mmol/L (3.5-5.1)
[2024-09-01 10:22] LABS: CALCIUM 8.5 mg/dL (8.5-10.1)
[2024-09-01 10:24] LABS: CREATININE 0.5 mg/dL (0.55-1.3)
[2024-09-01 10:25] LABS: BILIRUBIN,TOTAL 0.2 mg/dL (0.2-1); TOT PROT 6.4 g/dl (6.4-8.2)
[2024-09-01] MEDS: MAGNESIUM CITRATE 300 ML BOTTLE PO ONE (10:46)
[2024-09-02 09:23] VITALS: BP 91/57; PULSE 88; RESP 20; TEMP 98
== END 2024-09-02 13:41 | DRG 304 ==
LOC: J2C 04:00 → J4W 15:05 → J8W 08-29 17:09
PROVIDERS: ADMIT Neurological Surgery; ATTEND Nurse Practitioner Acute Care
PROC: 0SG0071 Fusion of Lumbar Vertebral Joint with Autologous Tissue Substitute, Posterior Approach, Posterior Column, Open Approach (ICD-10-PCS; 2024-08-24)
PROC: 0SB20ZZ Excision of Lumbar Vertebral Disc, Open Approach (ICD-10-PCS; 2024-08-24)
PROC: 4A11X4G Monitoring of Peripheral Nervous Electrical Activity, Intraoperative, External Approach (ICD-10-PCS; 2024-08-24)
PROC: 0SG00AJ Fusion of Lumbar Vertebral Joint with Interbody Fusion Device, Posterior Approach, Anterior Column, Open Approach (ICD-10-PCS; principal; 2024-08-24 08:00)
DX: M47.816 Spondylosis without myelopathy or radiculopathy, lumbar region (principal); D62 Acute posthemorrhagic anemia; M48.061 Spinal stenosis, lumbar region without neurogenic claudication; M51.26 Other intervertebral disc displacement, lumbar region; K59.00 Constipation, unspecified
CPT/HCPCS: 36415; 72131-TC; 76000-TC-FY; 80048; 80053; 81025; 82728; 83540; 83550; 83735; 84466; 84484; 85025; 85027; 86850; 86900; 86901; 93005; 93010; 94760; 97116-GP; 97162-GP; C1713; C1889; J0131; J1644; J1756